=== PATIENT | female | born 1995 | race Caucasian/White ===

== ENCOUNTER 2017-03-24 05:40 | Inpatient (IN) | payer OTHER ==
[2017-03-24] MEDS ORDERED: LACTATED RINGER'S 1,000 ML IV (05:53)
[2017-03-24] MEDS ORDERED: LACTATED RINGER'S 500 ML IV (05:53)
[2017-03-24] MEDS ORDERED: METHYLERGONOVINE 0.2 MG INJ IM ×2 (06:00→15:30)
[2017-03-24] MEDS ORDERED: CARBOPROST 250 MCG INJ IM ×2 (06:00→15:30)
[2017-03-24] MEDS ORDERED: CEFAZOLIN 2 GM/50 ML (PMX) 50 ML IV (06:00)
[2017-03-24] MEDS ORDERED: MISOPROSTOL 200 MCG TAB PR ×2 (06:00→15:30)
[2017-03-24] MEDS ORDERED: OXYTOCIN 30 UNITS/LR 500 ML IV ×3 (06:00→18:30)
[2017-03-24 06:25] LABS: ADD MAN DIFF? NO
[2017-03-24 06:32] LABS: BASOPHILS % 0.3 % (0.0-2.0); EOSINOPHILS # 0.1 10^3/ul (0.0-0.5); EOSINOPHILS % 1.1 % (0.0-7.0); HEMATOCRIT 30.8 % (37.0-47.0); HEMOGLOBIN 9.8 g/dl (12.0-16.0); LYMPHOCYTES # 2.6 10^3/ul (0.8-2.9); LYMPHOCYTES % 26.5 % (15.0-51.0); MEAN CORPUSCULAR HEMOGLOBIN 23.7 pg (29.0-33.0); MEAN CORPUSCULAR HGB CONC 31.8 g/dl (32.0-37.0); MEAN CORPUSCULAR VOLUME 74.6 fl (82.0-101.0); MEAN PLATELET VOLUME 11.2 fl (7.4-10.4); MONOCYTE # 0.7 10^3/ul (0.3-0.9); MONOCYTES % 7.2 % (0.0-11.0); NEUTROPHIL # 6.2 10^3/ul (1.6-7.5); NEUTROPHILS % 64.4 % (39.0-77.0); PLATELET COUNT 286 10^3/UL (140-415); RED BLOOD COUNT 4.13 10^6/ul (4.20-5.40); RED CELL DISTRIBUTION WIDTH 15.2 % (11.5-14.5)
[2017-03-24 06:32] LABS: WHITE BLOOD COUNT 9.6 10^3/ul (4.8-10.8)
[2017-03-24 06:50] LABS: INR 0.95; PROTIME 12.8 Sec (11.9-14.9)
[2017-03-24 06:51] LABS: PARTIAL THROMBOPLASTIN TIME 28.5 Sec (25.0-35.0)
[2017-03-24 07:32] LABS: HEPATITIS B SURFACE ANTIGEN NEGATIVE (NEGATIVE)
[2017-03-24] MEDS: ONDANSETRON 4 MG INJ IV ×2 (09:07→16:07)
[2017-03-24] MEDS: CITRIC ACID/SODIUM CITRATE 15 ML CUP PO (09:07)
[2017-03-24] MEDS ORDERED: morphine SULFATE/PF (10 MG/10 ML) INJ (09:26)
[2017-03-24] MEDS ORDERED: FENTAnyl 50 MCG/ML VIAL (09:26)
[2017-03-24] MEDS ORDERED: OXYTOCIN 10 UNIT INJ (09:27)
[2017-03-24] MEDS ORDERED: METOCLOPRAMIDE 10 MG INJ (09:27)
[2017-03-24] MEDS ORDERED: PHENYLephrine (100 MCG/ML) 5ML SYG (09:27)
[2017-03-24] MEDS ORDERED: TRIMETHOBENZAMIDE 100 MG/ML VIAL IM (10:30)
[2017-03-24] MEDS ORDERED: FENTAnyl 50 MCG/ML VIAL IV ×3 (10:30)
[2017-03-24] MEDS ORDERED: DIPHENHYDRAMINE 50 MG INJ IV ×2 (10:30)
[2017-03-24] MEDS ORDERED: ONDANSETRON 4 MG INJ IV (10:30)
[2017-03-24] MEDS ORDERED: NALBUPHINE HCL (10 MG/1 ML) INJ IV (10:30)
[2017-03-24] MEDS ORDERED: HYDROmorphONE (0.2 MG/ML) 10ML SYG IV ×3 (10:30)
[2017-03-24] MEDS ORDERED: EPHEDrine SULFATE 50 MG/5 ML SYG IV (10:30)
[2017-03-24] MEDS ORDERED: NALOXONE (0.4 MG/ML) INJ IV (10:30)
[2017-03-24] MEDS ORDERED: ALBUTEROL 0.083% (NEB) 2.5 MG/3 ML AMP HHN (10:30)
[2017-03-24] MEDS ORDERED: OXYCODONE/ACETAMINOPHEN (5/325) TAB PO ×3 (10:30→15:30)
[2017-03-24] MEDS ORDERED: IPRATROPIUM (NEB) 0.5 MG/2.5 ML AMP HHN (10:30)
[2017-03-24] MEDS ORDERED: morphine 4 MG/ML VIAL IV (10:30)
[2017-03-24] MEDS ORDERED: LABETALOL HCL 20MG INJ IV (10:30)
[2017-03-24] MEDS ORDERED: MEPERIDINE 25 MG INJ IV (10:30)
[2017-03-24] MEDS ORDERED: hydrALAzine 20 MG INJ IV (10:30)
[2017-03-24] MEDS ORDERED: morphine 2 MG INJ IV (10:30)
[2017-03-24] MEDS: OXYTOCIN 30 UNITS/LR 500 ML IV ×4 (11:46→22:30)
[2017-03-24] MEDS: TRIMETHOBENZAMIDE 100 MG/ML VIAL IM (12:54)
[2017-03-24 15:29] LABS: RAPID PLASMA REAGIN NONREACTIVE (NR)
[2017-03-24] MEDS ORDERED: HYDROCODONE/APAP (5/325) TAB PO (15:30)
[2017-03-24] MEDS ORDERED: LANOLIN 7 GM TUBE TOP (15:30)
[2017-03-24] MEDS: CEFAZOLIN 1 GM/50 ML (PMX) 50 ML IVPB (17:13)
[2017-03-24] MEDS: LACTATED RINGER'S 1,000 ML IV (18:30)
[2017-03-24] MEDS: SENNA/DOCUSATE NA (8.6MG/50MG) TAB PO (22:01)
[2017-03-25] MEDS: OXYTOCIN 30 UNITS/LR 500 ML IV (02:30)
[2017-03-25] MEDS: LACTATED RINGER'S 1,000 ML IV ×3 (02:30→18:30)
[2017-03-25] MEDS: KETOROLAC 30 MG INJ IV (06:04)
[2017-03-25 08:22] LABS: ADD MAN DIFF? NO
[2017-03-25 08:33] LABS: BASOPHILS % 0.3 % (0.0-2.0); EOSINOPHILS # 0.1 10^3/ul (0.0-0.5); EOSINOPHILS % 0.5 % (0.0-7.0); HEMATOCRIT 25.2 % (37.0-47.0); HEMOGLOBIN 7.7 g/dl (12.0-16.0); LYMPHOCYTES # 2.1 10^3/ul (0.8-2.9); LYMPHOCYTES % 19.6 % (15.0-51.0); MEAN CORPUSCULAR HEMOGLOBIN 23.4 pg (29.0-33.0); MEAN CORPUSCULAR HGB CONC 30.6 g/dl (32.0-37.0); MEAN CORPUSCULAR VOLUME 76.6 fl (82.0-101.0); MEAN PLATELET VOLUME 11.3 fl (7.4-10.4); MONOCYTE # 0.8 10^3/ul (0.3-0.9); MONOCYTES % 7.5 % (0.0-11.0); NEUTROPHIL # 7.7 10^3/ul (1.6-7.5); NEUTROPHILS % 71.6 % (39.0-77.0); PLATELET COUNT 221 10^3/UL (140-415); RED BLOOD COUNT 3.29 10^6/ul (4.20-5.40); RED CELL DISTRIBUTION WIDTH 15.2 % (11.5-14.5)
[2017-03-25 08:33] LABS: WHITE BLOOD COUNT 10.8 10^3/ul (4.8-10.8)
[2017-03-25] MEDS: SENNA/DOCUSATE NA (8.6MG/50MG) TAB PO ×2 (08:49→22:12)
[2017-03-25] MEDS: HYDROCODONE/APAP (5/325) TAB PO ×3 (10:47→22:13)
[2017-03-25] MEDS: IBUPROFEN 600 MG TAB PO ×3 (12:23→23:50)
[2017-03-26] MEDS: IBUPROFEN 600 MG TAB PO ×4 (05:52→23:37)
[2017-03-26] MEDS: SENNA/DOCUSATE NA (8.6MG/50MG) TAB PO ×2 (09:57→23:37)
[2017-03-26] MEDS: OXYCODONE/ACETAMINOPHEN (5/325) TAB PO ×2 (13:05→16:58)
[2017-03-26] MEDS: NA PHOSPHATE/BIPHOS 133 ML ENEMA PR (18:56)
[2017-03-27] MEDS: IBUPROFEN 600 MG TAB PO ×4 (05:43→23:43)
[2017-03-27] MEDS: DIPHTH/TET/ACEL PERTUSS (ADULT) 0.5 ML VIAL IM* (09:00)
[2017-03-27] MEDS: SENNA/DOCUSATE NA (8.6MG/50MG) TAB PO ×2 (10:06→21:25)
[2017-03-27 13:48] LABS: IMMEDIATE SPIN CROSSMATCH 1 2
[2017-03-27] MEDS: SOD CHLORIDE 0.9% 1,000 ML IV (14:09)
[2017-03-27] MEDS: HYDROCODONE/APAP (5/325) TAB PO (16:53)
[2017-03-27 22:43] LABS: ADD MAN DIFF? NO
[2017-03-27 22:44] LABS: WHITE BLOOD COUNT 10.6 10^3/ul (4.8-10.8)
[2017-03-27 22:44] LABS: BASOPHIL # 0.1 10^3/ul (0.0-0.1); BASOPHILS % 0.6 % (0.0-2.0); EOSINOPHILS # 0.2 10^3/ul (0.0-0.5); EOSINOPHILS % 2.1 % (0.0-7.0); HEMATOCRIT 32.4 % (37.0-47.0); HEMOGLOBIN 10.1 g/dl (12.0-16.0); LYMPHOCYTES # 3.1 10^3/ul (0.8-2.9); LYMPHOCYTES % 28.8 % (15.0-51.0); MEAN CORPUSCULAR HEMOGLOBIN 24.8 pg (29.0-33.0); MEAN CORPUSCULAR HGB CONC 31.2 g/dl (32.0-37.0); MEAN CORPUSCULAR VOLUME 79.4 fl (82.0-101.0); MEAN PLATELET VOLUME 10.2 fl (7.4-10.4); MONOCYTE # 0.7 10^3/ul (0.3-0.9); MONOCYTES % 6.6 % (0.0-11.0); NEUTROPHIL # 6.4 10^3/ul (1.6-7.5); NEUTROPHILS % 59.7 % (39.0-77.0); NUCLEATED RED BLOOD CELLS # 0.1 10^3/ul (0.0-0.0); NUCLEATED RED BLOOD CELLS% 0.5 /100WBC (0.0-0.0); PLATELET COUNT 322 10^3/UL (140-415); RED BLOOD COUNT 4.08 10^6/ul (4.20-5.40); RED CELL DISTRIBUTION WIDTH 15.7 % (11.5-14.5)
[2017-03-28] MEDS: IBUPROFEN 600 MG TAB PO ×3 (05:59→18:11)
[2017-03-28] MEDS: SENNA/DOCUSATE NA (8.6MG/50MG) TAB PO (09:58)
== END 2017-03-28 20:10 | disposition home or self-care (01) | DRG 766 ==
LOC: L-D 05:40 → PP1 15:00
PROVIDERS: Obstetrics & Gynecology
PROC: 10D00Z1 Extraction of Products of Conception, Low, Open Approach (ICD-10-PCS; principal; 2017-03-26)
PROC: 30233N1 Transfusion of Nonautologous Red Blood Cells into Peripheral Vein, Percutaneous Approach (ICD-10-PCS; 2017-03-27)
DX: O34.211 Maternal care for low transverse scar from previous cesarean delivery (principal); Z37.0 Single live birth; Z3A.39 39 weeks gestation of pregnancy
CPT/HCPCS: 36430; 82962; 85025; 85610; 85730; 86592; 86850; 86900; 86901; 86920; 87340; 90715; 99464

== ENCOUNTER 2018-05-10 22:12 | Outpatient (CLI) | payer OTHER ==
[2018-05-10] MEDS: LACTATED RINGER'S 1,000 ML IV (23:30)
[2018-05-10 23:49] LABS: ADD MAN DIFF? NO
[2018-05-10 23:51] LABS: BASOPHILS % 0.2 % (0.0-2.0); EOSINOPHILS % 0.2 % (0.0-7.0); HEMATOCRIT 34.1 % (37.0-47.0); HEMOGLOBIN 10.4 g/dl (12.0-16.0); LYMPHOCYTES # 0.9 10^3/ul (0.8-2.9); LYMPHOCYTES % 7.2 % (15.0-51.0); MEAN CORPUSCULAR HEMOGLOBIN 23.4 pg (29.0-33.0); MEAN CORPUSCULAR HGB CONC 30.5 g/dl (32.0-37.0); MEAN CORPUSCULAR VOLUME 76.8 fl (82.0-101.0); MEAN PLATELET VOLUME 10.5 fl (7.4-10.4); MONOCYTE # 0.4 10^3/ul (0.3-0.9); MONOCYTES % 3.4 % (0.0-11.0); NEUTROPHIL # 10.6 10^3/ul (1.6-7.5); NEUTROPHILS % 88.2 % (39.0-77.0); PLATELET COUNT 319 10^3/UL (140-415); RED BLOOD COUNT 4.44 10^6/ul (4.20-5.40); RED CELL DISTRIBUTION WIDTH 14.1 % (11.5-14.5)
[2018-05-11 00:08] LABS: ALANINE AMINOTRANSFERASE 18 IU/L (13-69); ALBUMIN 3.7 g/dl (3.3-4.9); ALBUMIN/GLOBULIN RATIO 0.94; ALKALINE PHOSPHATASE 113 IU/L (42-121); AMYLASE 88 U/L (11-123); ANION GAP 13 (5-13); ASPARTATE AMINO TRANSFERASE 23 IU/L (15-46); BILIRUBIN,INDIRECT 0.2 mg/dl (0-1.1); BILIRUBIN,TOTAL 0.2 mg/dl (0.2-1.3); BLOOD UREA NITROGEN 7 mg/dl (7-20); CALCIUM 8.6 mg/dl (8.4-10.2); CARBON DIOXIDE 21 mmol/L (21-31); CHLORIDE 104 mmol/L (97-110); CREATININE 0.42 mg/dl (0.44-1.00); Estimated GFR > 60 mL/min (>60); GLUCOSE 101 mg/dl (70-220); LIPASE 41 U/L (23-300); POTASSIUM 3.4 mmol/L (3.5-5.1); SODIUM 138 mmol/L (135-144); TOTAL PROTEIN 7.6 g/dl (6.1-8.1)
[2018-05-11 00:09] LABS: ADD UMIC YES; UR ASCORBIC ACID NEGATIVE (NEGATIVE); UR BACTERIA MODERATE /HPF (NONE SEEN); UR BILIRUBIN (Dip) NEGATIVE (NEGATIVE); UR BLOOD (Dip) NEGATIVE (NEGATIVE); UR CLARITY CLOUDY (CLEAR); UR COLOR AMBER (YELLOW); UR GLUCOSE (Dip) NEGATIVE (NEGATIVE); UR KETONES (Dip) 2+ mg/dL (NEGATIVE); UR LEUKOCYTE ESTERASE (Dip) TRACE Leu/ul (NEGATIVE); UR MUCUS MODERATE /HPF (NONE SEEN); UR NITRITE (Dip) NEGATIVE (NEGATIVE); UR RBC 7 /HPF (0-5); UR SPECIFIC GRAVITY (Dip) 1.029 (1.003-1.030); UR SQUAMOUS EPITHELIAL CELL MODERATE /HPF (FEW); UR TOTAL PROTEIN (Dip) 1+ mg/dl (NEGATIVE); UR UROBILINOGEN (Dip) NEGATIVE (NEGATIVE); UR WBC 21 /HPF (0-5)
[2018-05-11] MEDS: LACTATED RINGER'S 1,000 ML IV (01:38)
== END 2018-05-11 04:42 | disposition home or self-care (01) ==
LOC: OBT 22:12 → L-D 22:14
DX: O26.892 Other specified pregnancy related conditions, second trimester (principal); Z3A.28 28 weeks gestation of pregnancy; R10.2 Pelvic and perineal pain
CPT/HCPCS: 36415; 76815; 76817; 76818; 80053; 81001; 82150; 83690; 85025; 86850; 86900; 86901; 96360; 96361

== ENCOUNTER 2018-05-22 19:41 | Outpatient (CLI) | payer OTHER ==
[2018-05-22] MEDS: LACTATED RINGER'S 1,000 ML IV* (20:53)
[2018-05-22 21:05] LABS: ADD MAN DIFF? NO
[2018-05-22 21:08] LABS: WHITE BLOOD COUNT 11.6 10^3/ul (4.8-10.8)
[2018-05-22 21:08] LABS: BASOPHILS % 0.3 % (0.0-2.0); EOSINOPHILS # 0.1 10^3/ul (0.0-0.5); EOSINOPHILS % 0.6 % (0.0-7.0); HEMATOCRIT 34.3 % (37.0-47.0); HEMOGLOBIN 10.7 g/dl (12.0-16.0); LYMPHOCYTES # 2.8 10^3/ul (0.8-2.9); LYMPHOCYTES % 24.1 % (15.0-51.0); MEAN CORPUSCULAR HEMOGLOBIN 23.5 pg (29.0-33.0); MEAN CORPUSCULAR HGB CONC 31.2 g/dl (32.0-37.0); MEAN CORPUSCULAR VOLUME 75.2 fl (82.0-101.0); MEAN PLATELET VOLUME 10.4 fl (7.4-10.4); MONOCYTE # 0.8 10^3/ul (0.3-0.9); MONOCYTES % 7.1 % (0.0-11.0); NEUTROPHIL # 7.9 10^3/ul (1.6-7.5); NEUTROPHILS % 67.5 % (39.0-77.0); PLATELET COUNT 364 10^3/UL (140-415); RED BLOOD COUNT 4.56 10^6/ul (4.20-5.40); RED CELL DISTRIBUTION WIDTH 14.2 % (11.5-14.5)
[2018-05-22 21:12] LABS: ADD UMIC YES; UR ASCORBIC ACID NEGATIVE (NEGATIVE); UR BACTERIA FEW /HPF (NONE SEEN); UR BILIRUBIN (Dip) NEGATIVE (NEGATIVE); UR BLOOD (Dip) NEGATIVE (NEGATIVE); UR CLARITY CLOUDY (CLEAR); UR COLOR AMBER (YELLOW); UR GLUCOSE (Dip) NEGATIVE (NEGATIVE); UR KETONES (Dip) NEGATIVE (NEGATIVE); UR LEUKOCYTE ESTERASE (Dip) TRACE Leu/ul (NEGATIVE); UR MUCUS MANY /HPF (NONE SEEN); UR NITRITE (Dip) NEGATIVE (NEGATIVE); UR RBC 10 /HPF (0-5); UR SPECIFIC GRAVITY (Dip) 1.031 (1.003-1.030); UR SQUAMOUS EPITHELIAL CELL MODERATE /HPF (FEW); UR TOTAL PROTEIN (Dip) 2+ mg/dl (NEGATIVE); UR UROBILINOGEN (Dip) 2+ mg/dL (NEGATIVE); UR WBC 15 /HPF (0-5)
[2018-05-22 21:25] LABS: ALANINE AMINOTRANSFERASE 56 IU/L (13-69); ALBUMIN 3.8 g/dl (3.3-4.9); ALBUMIN/GLOBULIN RATIO 0.92; ALKALINE PHOSPHATASE 142 IU/L (42-121); AMYLASE 60 U/L (11-123); ANION GAP 13 (5-13); ASPARTATE AMINO TRANSFERASE 41 IU/L (15-46); BILIRUBIN,INDIRECT 0.2 mg/dl (0-1.1); BILIRUBIN,TOTAL 0.2 mg/dl (0.2-1.3); BLOOD UREA NITROGEN 6 mg/dl (7-20); CALCIUM 9.2 mg/dl (8.4-10.2); CARBON DIOXIDE 19 mmol/L (21-31); CHLORIDE 107 mmol/L (97-110); CREATININE 0.45 mg/dl (0.44-1.00); Estimated GFR > 60 mL/min (>60); GLUCOSE 82 mg/dl (70-220); LIPASE 49 U/L (23-300); POTASSIUM 3.4 mmol/L (3.5-5.1); SODIUM 139 mmol/L (135-144); TOTAL PROTEIN 7.9 g/dl (6.1-8.1)
== END 2018-05-22 22:47 | disposition home or self-care (01) ==
LOC: OBT 19:41 → L-D 19:41 → OBT 22:47
DX: O26.893 Other specified pregnancy related conditions, third trimester (principal); Z3A.29 29 weeks gestation of pregnancy; R10.2 Pelvic and perineal pain
CPT/HCPCS: 36415; 76817; 76818; 80053; 81001; 82150; 83690; 85025; 96360; 96361

== ENCOUNTER 2018-07-27 09:25 | Inpatient (IN) | payer OTHER ==
[2018-07-27] MEDS ORDERED: OXYTOCIN 30 UNITS/LR 500 ML IV (10:00)
[2018-07-27] MEDS ORDERED: MISOPROSTOL 200 MCG TAB PR (10:00)
[2018-07-27] MEDS ORDERED: CEFAZOLIN 2 GM/50 ML (PMX) 50 ML IVPB (10:00)
[2018-07-27] MEDS ORDERED: CARBOPROST 250 MCG INJ IM (10:00)
[2018-07-27] MEDS ORDERED: AZITHROMYCIN 500MG/NS (PMX) 250 ML IV (10:00)
[2018-07-27] MEDS ORDERED: METHYLERGONOVINE 0.2 MG INJ IM (10:00)
[2018-07-27] MEDS: LACTATED RINGER'S 1,000 ML IV ×2 (10:20→19:12)
[2018-07-27 10:40] LABS: ADD MAN DIFF? NO
[2018-07-27 10:46] LABS: BASOPHILS % 0.3 % (0.0-2.0); EOSINOPHILS # 0.1 10^3/ul (0.0-0.5); EOSINOPHILS % 0.6 % (0.0-7.0); HEMATOCRIT 30.5 % (37.0-47.0); HEMOGLOBIN 9.1 g/dl (12.0-16.0); LYMPHOCYTES # 2.1 10^3/ul (0.8-2.9); LYMPHOCYTES % 20.8 % (15.0-51.0); MEAN CORPUSCULAR HEMOGLOBIN 21.8 pg (29.0-33.0); MEAN CORPUSCULAR HGB CONC 29.8 g/dl (32.0-37.0); MEAN CORPUSCULAR VOLUME 73.1 fl (82.0-101.0); MEAN PLATELET VOLUME 10.6 fl (7.4-10.4); MONOCYTE # 0.6 10^3/ul (0.3-0.9); MONOCYTES % 6.2 % (0.0-11.0); NEUTROPHIL # 7.3 10^3/ul (1.6-7.5); NEUTROPHILS % 71.4 % (39.0-77.0); PLATELET COUNT 276 10^3/UL (140-415); RED BLOOD COUNT 4.17 10^6/ul (4.20-5.40); RED CELL DISTRIBUTION WIDTH 15.2 % (11.5-14.5)
[2018-07-27 10:46] LABS: WHITE BLOOD COUNT 10.2 10^3/ul (4.8-10.8)
[2018-07-27 11:05] LABS: INR 0.91; PARTIAL THROMBOPLASTIN TIME 27.3 Sec (23.0-35.0); PROTIME 12.4 Sec (11.9-14.9)
[2018-07-27 12:16] LABS: HEPATITIS B SURFACE ANTIGEN NEGATIVE (NEGATIVE)
[2018-07-27 15:12] LABS: RAPID PLASMA REAGIN NONREACTIVE (NR)
[2018-07-27] MEDS ORDERED: FENTAnyl 50 MCG/ML VIAL (20:45)
[2018-07-27] MEDS ORDERED: morphine SULFATE/PF (10 MG/10 ML) INJ ×2 (20:45→20:46)
[2018-07-27] MEDS ORDERED: ZOLPIDEM 5 MG TAB PO (21:00)
[2018-07-27] MEDS ORDERED: DIPHENHYDRAMINE 50 MG INJ IV (21:00)
[2018-07-27] MEDS ORDERED: NALOXONE (0.4 MG/ML) INJ IV (21:00)
[2018-07-27] MEDS: CEFAZOLIN 3 GM in DEXTROSE 5% 100 ML IV (21:00)
[2018-07-27] MEDS ORDERED: HYDROmorphONE 0.5 MG/0.5 ML SYG IV ×2 (21:00)
[2018-07-27] MEDS ORDERED: DEXAMETHASONE 4 MG/ML 1 ML INJ (21:00)
[2018-07-27] MEDS: OXYTOCIN 30 UNITS/LR 500 ML IV (22:58)
[2018-07-27] MEDS: KETOROLAC 30 MG INJ IV (23:41)
[2018-07-27] MEDS: ONDANSETRON 4 MG INJ IV (23:46)
[2018-07-28] MEDS: DEXTROSE 5%-LR 1,000 ML IV ×3 (02:02→18:02)
[2018-07-28] MEDS ORDERED: MAGNESIUM HYDROXIDE 30ML CUP PO (02:30)
[2018-07-28] MEDS ORDERED: LANOLIN HPA 1 PKT TOP (02:30)
[2018-07-28] MEDS ORDERED: METHYLERGONOVINE 0.2 MG TAB PO (02:30)
[2018-07-28] MEDS ORDERED: CARBOPROST 250 MCG INJ IM (02:30)
[2018-07-28] MEDS ORDERED: MISOPROSTOL 200 MCG TAB PR (02:30)
[2018-07-28] MEDS ORDERED: OXYTOCIN 30 UNITS/LR 500 ML IV (02:30)
[2018-07-28] MEDS ORDERED: METHYLERGONOVINE 0.2 MG INJ IM (02:30)
[2018-07-28] MEDS: OXYTOCIN 30 UNITS/LR 500 ML IV (04:50)
[2018-07-28] MEDS: KETOROLAC 30 MG INJ IV ×2 (05:29→14:21)
[2018-07-28 08:19] LABS: ADD MAN DIFF? NO
[2018-07-28 08:27] LABS: BASOPHILS % 0.2 % (0.0-2.0); HEMATOCRIT 30.3 % (37.0-47.0); HEMOGLOBIN 8.9 g/dl (12.0-16.0); LYMPHOCYTES # 1.9 10^3/ul (0.8-2.9); LYMPHOCYTES % 12.9 % (15.0-51.0); MEAN CORPUSCULAR HEMOGLOBIN 21.5 pg (29.0-33.0); MEAN CORPUSCULAR HGB CONC 29.4 g/dl (32.0-37.0); MEAN CORPUSCULAR VOLUME 73.4 fl (82.0-101.0); MEAN PLATELET VOLUME 11.2 fl (7.4-10.4); MONOCYTE # 0.8 10^3/ul (0.3-0.9); MONOCYTES % 5.1 % (0.0-11.0); NEUTROPHIL # 12.1 10^3/ul (1.6-7.5); PLATELET COUNT 279 10^3/UL (140-415); RED BLOOD COUNT 4.13 10^6/ul (4.20-5.40)
[2018-07-28] MEDS: SENNA/DOCUSATE NA (8.6MG/50MG) TAB PO ×2 (09:45→22:21)
[2018-07-28] MEDS ORDERED: DIPHTH/TET/ACEL PERTUSS (ADULT) 0.5 ML VIAL IM* (11:00)
[2018-07-28] MEDS: LACTATED RINGER'S 500 ML IV (16:39)
[2018-07-28] MEDS: HYDROCODONE/APAP (5/325) TAB PO (22:21)
[2018-07-28] MEDS: IBUPROFEN 800 MG TAB PO (22:21)
[2018-07-29] MEDS: DEXTROSE 5%-LR 1,000 ML IV (01:35)
[2018-07-29] MEDS: IBUPROFEN 800 MG TAB PO ×3 (06:27→21:59)
[2018-07-29] MEDS: HYDROCODONE/APAP (5/325) TAB PO ×4 (06:27→22:00)
[2018-07-29] MEDS: SENNA/DOCUSATE NA (8.6MG/50MG) TAB PO ×2 (10:16→22:00)
[2018-07-30] MEDS: IBUPROFEN 800 MG TAB PO ×2 (05:32→14:14)
[2018-07-30] MEDS: HYDROCODONE/APAP (5/325) TAB PO ×2 (06:00→14:00)
[2018-07-30] MEDS: DIPHTH/TET/ACEL PERTUSS (ADULT) 0.5 ML VIAL IM* (09:12)
[2018-07-30] MEDS: SENNA/DOCUSATE NA (8.6MG/50MG) TAB PO (09:12)
[2018-07-30] MEDS: MEASLES,MUMPS,RUBELLA VACCINE INJ SC* (09:13)
== END 2018-07-30 19:30 | disposition home or self-care (01) | DRG 788 ==
LOC: PP1 07-28 00:36 → L-D 09:25
PROVIDERS: Obstetrics & Gynecology
PROC: 10D00Z1 Extraction of Products of Conception, Low, Open Approach (ICD-10-PCS; principal; 2018-07-27)
DX: O34.211 Maternal care for low transverse scar from previous cesarean delivery (principal); O94 Sequelae of complication of pregnancy, childbirth, and the puerperium; O99.214 Obesity complicating childbirth; E66.01 Morbid (severe) obesity due to excess calories; Z3A.39 39 weeks gestation of pregnancy; Z37.0 Single live birth
CPT/HCPCS: 85025; 85610; 85730; 86592; 86850; 86900; 86901; 86920; 87340; 99464